=== PATIENT | male | born 1945 | race Caucasian/White ===

== ENCOUNTER 2016-09-28 17:39 | Emergency (ER) | payer MEDICARE, BC ==
--- NOTE | ~2016-09-28 | EKG ---
PATIENT: ADRIÁN JOSEPH UNIT #: [id number] Ventricular Rate: 93 BPM Atrial Rate: 93 BPM P-R Interval: 170 ms QRS Duration: 106 ms Q-T Interval: 396 ms QTC Calculation(Bezet): 492 ms P Gates: 37 degrees Calculated R Gates: -55 degrees Calculated T Gates: 40 degrees Diagnosis Line: Normal sinus rhythm Diagnosis Line: Possible Left atrial enlargement Diagnosis Line: Incomplete right bundle branch block Diagnosis Line: Left anterior fascicular block Diagnosis Line: Prolonged QT Diagnosis Line: Abnormal ECG Diagnosis Line: No previous ECGs available Diagnosis Line: Confirmed by ANGELIC ALBERT MD ([id number]) on Diagnosis Line: 10/02/2016 8:36:01 AM INTERPRETING MD: BETY SALGADO
--- NOTE | ~2016-09-28 | CT71 ---
[facility] A Service of [facility] / [facility] RADIOLOGY TEXT RESULTS PATIENT: ADRIÁN JOSEPH LOCATION: SED : 43 UNIT #: [id number] AGE: [address]: Tariq Brand MD SEX: M ORDER DR: [id number] [address] [address] [id number] MR#: [id number] Acc #: [id number] NAME: ADRIÁN JOSEPH. : 1945 SEX: M STUDY DATE/TIME: 09/28/2016 19:07 UNIT: SED ROOM: STUDY DESCRIPTION: CT Head Wo Contrast Attending Physician: Tariq Brand M.D. Ordering Physician: Chau Zavala M.D. Primary Care Physician: Samson Ahuja M.D. MEDICAL IMAGING REPORT This report is preliminary unless electronic signature is present. EXAM CT head without contrast, 09/28/2016 HISTORY 70-year-old male with seizure today. Generalized weakness. History of previous stroke. COMPARISON Brain MRI 04/20/2016 TECHNIQUE Routine unenhanced axial images performed through the brain. This CT exam was performed with one or more of the following radiation dose reduction techniques: automatic exposure control, adjustment of mA and/or kV according to patient size, and iterative reconstruction. FINDINGS There is evidence of a small area of encephalomalacia in the right parietal lobe consistent with remote infarct. Superimposed on this, there is new, slightly indistinct hypoattenuation in the right parietooccipital lobe consistent with acute/subacute infarct. No evidence of hemorrhagic transformation. No significant mass effect or midline shift. No other areas of acute infarction are noted. Ventricular system normal in size and configuration. No acute bony abnormality. Visualized paranasal sinuses and mastoid air cells are clear. IMPRESSION 1. Acute/subacute infarct involving the right parietooccipital lobe superimposed on a small remote infarction of the right parietal lobe. The findings are new since the prior brain MRI 04/20/2016. No evidence of hemorrhagic transformation, significant mass effect, or STS. [facility] A Service of [facility] / [facility] RADIOLOGY TEXT RESULTS PATIENT: ADRIÁN JOSEPH [id number] : [facility] UNIT #: [id number] AGE: [address]: Tariq Brand MD SEX: M ORDER DR: midline shift. 2. Critical results were communicated to the emergency room physician, Dr. Brand, at 2000 hours 09/28/2016. Dictated by... Marco Chen M.D. THIS IS AN ELECTRONICALLY VERIFIED REPORT Marco Chen M.D. at 09/29/2016 3:05 PM ISABELLE/vandana TD: 09/29/2016 04:27 JOB #: [id number] MEDICAL IMAGING REPORT Page 1 of 1
[~2016-09-28 17:39] MED LIST: ACETAMINOPHEN PO; ASACOL400 MG PO; AUGMENTIN PO; CALCIUM 5001 TAB PO; CLINDAMYCIN PHOS; CLINDESSE5.8 GM TOP; DORYX; DOXYCYCLINE PO; EFFEXOR PO; EFFEXOR XR PO; ENTOCORT EC3 MG PO; FLONASE16 GM; FLUTICASONE; IMURAN50 MG PO; INDOMETHACIN; INDOMETHACIN75 MG PO; K-DUR20 ME2 PO; KEFLEX500 M1 PO; LEVAQUIN PO; LOTREL 5/20 MG1 CAP PO; MEDROL DOSE PACK; MIR; MIRALAX PO; NORCO 7.5/325 T1 TAB PO; PATIENT'S PHARMACY; PREDNISONE PO; PRILOSEC PO; SENNA PO; VIT B12; VIT D2
[2016-09-28 18:17] LABS: BASOPHIL# 0.1 X10e3 (0-0.3); BASOPHIL% 0.4 % (0-2.5); EOSINOPHIL# 0.7 X10e3 (0-0.7); EOSINOPHIL% 4.5 % (0.0-7.0); HEMATOCRIT 40.3 % (38.0-50.0); HEMOGLOBIN 13.6 gm/dL (13.0-16.0); LYMPHOCYTE# 2.9 X10e3 (1.0-3.5); LYMPHOCYTE% 19.4 % (17.0-45.0); MEAN CELL VOLUME 91.3 FL (83-96); MEAN CORPUSCULAR HEMOGLOBIN 30.9 PG (28-34); MEAN CORPUSCULAR HGB CONC 33.8 g/dL (30-36); MEAN PLATELET VOLUME 7.1 FL (6.5-11.5); MONOCYTE% 6.6 % (3.0-12.0); NEUTROPHIL# 10.2 X10e3 (1.5-7.1); NEUTROPHIL% 69.1 % (40-75); PLATELET COUNT 240 X10e3 (140-420); RED BLOOD COUNT 4.42 X10e (3.90-5.60); RED CELL DISTRIBUTION WIDTH 14.3 % (11.0-15.5); WHITE BLOOD COUNT 14.8 X10e3 (4.0-10.5)
[2016-09-28 18:20] LABS: DIFF IND NO
[2016-09-28 18:23] LABS: POC - CKMB <1.0 ng/mL (0.0-7.9); POC - TROPONIN <0.05 ng/mL (<=0.05)
[2016-09-28 18:35] LABS: ALBUMIN SERUM 3.7 g/dL (3.5-5.0); BUN/CREATININE RATIO 12.72; CREATININE SERUM 1.1 mg/dL (0.6-1.4); GLOM FILT RATE Estimated 67.2 mL/min (>60); POTASSIUM 3.2 mmol/L (3.5-5.1); PROTEIN TOTAL SERUM 6.9 g/dL (6.0-8.3)
[2016-09-28 19:08] LABS: URINE SOURCE CLEAN CATCH
[2016-09-28 19:10] LABS: URINE APPEARANCE CLEAR; URINE BILIRUBIN NEG (NEG); URINE BLOOD NEG (NEG); URINE COLOR YELLOW; URINE GLUCOSE NEG (NORM); URINE KETONE NEG (NEG); URINE LEUKOCYTE ESTERASE NEG (NEG); URINE NITRATE NEG (NEG); URINE PROTEIN NEG (NEG); URINE UROBILINOGEN 0.2 MG/DL (NORM)
[2016-09-28 19:11] LABS: MICRO INDICATED? NO
[2016-09-28 19:55] LABS: POC - CKMB <1.0 ng/mL (0.0-7.9); POC - TROPONIN <0.05 ng/mL (<=0.05)
[2016-09-28 21:21] LABS: POC - CKMB 1.2 ng/mL (0.0-7.9)
[2016-09-28 21:22] LABS: POC - TROPONIN <0.05 ng/mL (<=0.05)
== END 2016-09-28 21:57 | disposition hospice, home (50) ==
LOC: SED 17:39
PROVIDERS: Emergency Medicine
DX: I63.9 Cerebral infarction, unspecified (principal); K21.9 Gastro-esophageal reflux disease without esophagitis; I10 Essential (primary) hypertension; Z90.49 Acquired absence of other specified parts of digestive tract; Z88.8 Allergy status to other drugs, medicaments and biological substances
CPT/HCPCS: 36415; 70450; 80053; 81003; 82553; 84484; 85025; 93005; 96374; 99285; J2060; J3360